=== PATIENT | female | born 1975 | race Caucasian/White ===

== ENCOUNTER 2017-07-09 11:40 | Emergency (ER) | payer BC | END 2017-07-09 12:13 | disposition home or self-care (01) | LOC: NAV ERS 11:40 → EDBD 11:40 → NAV ERS 12:13 | DX: J06.9 Acute upper respiratory infection, unspecified (principal); I10 Essential (primary) hypertension; F17.210 Nicotine dependence, cigarettes, uncomplicated; Z79.899 Other long term (current) drug therapy | CPT/HCPCS: 99283 ==

== ENCOUNTER 2019-02-27 15:58 | Emergency (ER) | payer SELFPAY ==
--- NOTE | 2019-02-27 16:31 | RAD ---
XR Finger(s) Lt Min 2 View: 02/27/2019 4:09 PM CLINICAL INDICATION: Crush injury, second digit, left hand COMPARISON: None. FINDINGS: Fracture:No fracture. Arthropathy:None of significance. Incidental findings:None of significance. IMPRESSION: 1. No acute osseous abnormality.
== END 2019-02-27 16:39 | disposition home or self-care (01) ==
LOC: NAV ERS 15:58
DX: S60.122A Contusion of left index finger with damage to nail, initial encounter (principal); I10 Essential (primary) hypertension; F17.210 Nicotine dependence, cigarettes, uncomplicated; Z79.899 Other long term (current) drug therapy; W23.0XXA Caught, crushed, jammed, or pinched between moving objects, initial encounter

== ENCOUNTER 2021-05-01 14:47 | Outpatient (CLI) | payer OTHER | END 2021-05-01 14:48 | disposition home or self-care (01) | LOC: NAV RAD 14:47 | PROVIDERS: ATTEND Nurse Practitioner Family | DX: M79.671 Pain in right foot (principal) ==